=== PATIENT | female | born 1945 | race Caucasian/White ===

== ENCOUNTER 2021-03-28 12:29 | Emergency (ER) | payer SELFPAY ==
[~2021-03-28] VITALS: Ht 165.1 cm; Wt 63.5 kg
[2021-03-28] MEDS ORDERED: HYDROcodone-ACET 10/325MG TAB PO ONE (15:00)
[2021-03-28 15:15] VITALS: BP 152/87
== END 2021-03-28 15:20 | disposition home or self-care (01) ==
LOC: EDBD 12:29 → ER 12:29
DX: S32.512A Fracture of superior rim of left pubis, initial encounter for closed fracture (principal); S32.058A Other fracture of fifth lumbar vertebra, initial encounter for closed fracture; I10 Essential (primary) hypertension; X58.XXXA Exposure to other specified factors, initial encounter; Y93.89 Activity, other specified; Y92.89 Other specified places as the place of occurrence of the external cause; Y99.8 Other external cause status
CPT/HCPCS: 72192